=== PATIENT | female | born 1965 | race Caucasian/White ===

== ENCOUNTER → 2017-08-17 | Outpatient (CLI) | payer OTHER | LOC: BMCIMAGING 07:55 | PROVIDERS: ATTEND Physician Assistant | DX: R93.8 Abnormal findings on diagnostic imaging of other specified body structures (principal); R10.31 Right lower quadrant pain ==

== ENCOUNTER 2017-11-17 06:33 | Day surgery (SDC) | payer OTHER ==
[2017-11-17] MEDS ORDERED: LIDOCAINE 1% 2 ML INJ ID PRN (06:45)
[2017-11-17] MEDS ORDERED: LR 1,000 ML IV ONE (06:45)
[2017-11-17 07:04] VITALS: PULSE 64
--- NOTE | 2017-11-17 07:09 | PDANEPAE ---
ANE History of Present Illness 52 year old female presents for hysteroscopy due to uterine polyp. ANE Past Medical History - Cardiovascular History Hx Hypertension: No Hx Arrhythmias: No Hx Chest Pain: No Hx Coronary Artery / Peripheral Vascular Disease: No Hx CHF / Valvular Disease: No Hx Palpitations: No - Pulmonary History Hx COPD: No Hx Asthma/Reactive Airway Disease: No Hx Recent Upper Respiratory Infection: No Hx Oxygen in Use at Home: No Hx Sleep Apnea: No Sleep Apnea Screening Result - Last Documented: Negative Pulmonary History Comment: ASTHMA WHEN YOUNGER - Neurologic History Hx Cerebrovascular Accident: No Hx Seizures: No Hx Dementia: No - Endocrine History Hx Diabetes: No Hypothyroid: No Hyperthyroid: No Obesity: no - Renal History Hx Renal Disorders: No - Liver History Hx Hepatic Disorders: No - Neurological & Psychiatric Hx Hx Neurological and Psychiatric Disorders: No - Cancer History Hx Cancer: No Cancer History Comment: BREAST DYSPLASIA - Congenital Disorder History Hx Congenital Disorders: No - GI History Hx Gastrointestinal Disorders: Yes Gastrointestinal History Comment: PRILOSEC FOR ACID - Other Health History Other Health History: ALLERGIC DERMATITIS - Chronic Pain History Chronic Pain: Yes (ARTHRITIS -BACK PAIN CERVICAL OR LUMBAR) - Surgical History Prior Surgeries: RECTAL SURGERY FISSURE. LUMPECTOMY L ANE Review of Systems Review of systems is: negative Review of Systems: - Exercise capacity Exercise capacity: >=4 METS METS (RN): 4 METS ANE Patient History - Allergies Allergies/Adverse Reactions: amoxicillin [From Augmentin] Allergy (Intermediate, Verified 10/28/17 12:22) TURNED RED LIKE SUNBURN clavulanic acid [From Augmentin] Allergy (Intermediate, Verified 10/28/17 12:22) TURNED RED LIKE SUNBURN diclofenac potassium [From Cataflam] Allergy (Verified 02/19/12 16:10) - Home Medications Home medications: home medication list seen and reviewed Home Medications: Kenia Allergy 10/28/17 [Last Taken 11/16/17] Ibuprofen 10/28/17 [Last Taken 11/08/17] Naproxen 10/28/17 [Last Taken 11/08/17] - NPO status NPO Status: no food or drink >8 hours NPO Since - Liquids (Date): 11/16/17 NPO Since - Liquids (Time): 21:30 NPO Since - Solids (Date): 11/16/17 NPO Since - Solids (Time): 19:30 - Anes Hx Anes Hx: post operative nausea (Per patient, post-operative nausea is related to "opioid" pain medications, but has tolerated general anesthesia well in the past.) - Smoking Hx Smoking Status: Never smoked Marijuana use: No - Alcohol Use Alcohol Use: Occasionally - Family Anes Hx Family Anes Hx: neg - N/A Family Hx Anesthesia Complications: NEG ANE Labs/Vital Signs - Vital Signs Vital Signs: reviewed preoperatively; see RN documention for details Blood Pressure: 100/66 Heart Rate: 64 Respiratory Rate: 16 O2 Sat (%): 93 Height: 170.18 cm Weight: 63.503 kg ANE Physical Exam - Airway Neck exam: FROM Mallampati Score: Class 2 Mouth exam: normal dental/mouth exam Mouth image: 1 - Caps/Crowns - Pulmonary Pulmonary: no respiratory distress - Cardiovascular Cardiovascular: regular rate and rhythym - ASA Status ASA Status: II ANE Anesthesia Plan Anesthesia Plan: GA w LMA, GA with mask Total IV Anesthesia: Yes
[2017-11-17] MEDS ORDERED: PROPOFOL/EMULSION 500 MG/50 ML BOTTLE IV ONE (07:58)
[2017-11-17] MEDS ORDERED: fentaNYL 100 MCG/2 ML INJ ONE ×2 (08:03→08:53)
[2017-11-17] MEDS ORDERED: ONDANSETRON 4 MG/2 ML VIAL ONE ×2 (08:04→08:57)
[2017-11-17] MEDS ORDERED: DEXAMETHASONE 4 MG/ML VIAL ONE (08:04)
[2017-11-17] MEDS ORDERED: HYDROCODONE/APAP 5/325 TAB PO PRN (08:19)
[2017-11-17] MEDS ORDERED: NALOXONE HCL 0.4 MG/ML INJ IVP PRN (08:19)
[2017-11-17] MEDS ORDERED: ONDANSETRON 4 MG/2 ML VIAL IVP PRN (08:19)
[2017-11-17] MEDS ORDERED: fentaNYL 100 MCG/2 ML INJ IVP PRN (08:19)
[2017-11-17] MEDS ORDERED: LR 500 ML IV PRN (08:19)
--- NOTE | 2017-11-17 09:27 | POSTOPPROG ---
Post Op Note Date of Operation: 11/17/17 Surgeon: Cleopatra Cast Anesthesiologist: Terry Casillas Anesthesia: LMA Pre-op Diagnosis: PMB polyps Post-op Diagnosis: same Indication: PMB Procedure: H/S polypectomy Findings: small polyps Inf/Abcess present in the surg proc area at time of surgery?: No EBL: Minimal
[2017-11-17 09:33] VITALS: TEMP 97.2
[2017-11-17 09:38] VITALS: O2SAT 98
[2017-11-17] MEDS ORDERED: IBUPROFEN 200 MG TAB PO ONE (09:45)
[2017-11-17 10:23] VITALS: BP 111/71; RESP 15
--- NOTE | 2017-11-17 15:10 | POSTANESTH ---
Post Anesthetic Evaluation Cardiovascular Status: Normal, Stable, Similar to Pre-Op Cond Respiratory Status: Normal, Stable, Similar to Pre-op Cond. Level of Consciousness/Mental Status: Can Participate in Eval, Alert and Oriented Pain Control: Adequate, Prn Tx Ordered Nausea/Vomiting Control: Adequate, Prn Tx Ordered Complications Possibly Related to Anesthesia: None Noted
--- NOTE | 2017-11-20 00:47 | GOP ---
[f rep st] OPERATIVE REPORT DATE OF OPERATION: 11/17/2017 SURGEON: Cleopatra Cast MD ANESTHESIA: General with LMA. ANESTHESIOLOGIST: Edil Casillas MD PREOPERATIVE DIAGNOSIS: 1. Postmenopausal bleeding. 2. Endometrial polyps. POSTOPERATIVE DIAGNOSIS: 1. Postmenopausal bleeding. 2. Endometrial polyps. PROCEDURE PERFORMED: Hysteroscopic polypectomy. FINDINGS: Very slight polypoid looking fragments in the endometrium. Normal tubal ostia and normal uterus and cervix. INDICATIONS: Patient is a 52-year-old who has been menopausal, has been on tamoxifen for 5 years and finished in 02/2017. She has had intermittent episodes of bleeding and biopsy in 03/2016 showed dis rupted polyp. She has had no significant bleeding since then until 07/2017 when she had significant right-sided pain and nausea and bleeding. An ultrasound showed an 11 mm stripe. Because of her new onset of bleeding and history of disrupted polyp, we felt that hysteroscopic resection of polyps woul d be beneficial for her bleeding and pain. DESCRIPTION OF PROCEDURE: With informed consent signed, patient was taken to the operating room and placed under general anesthesia. Placed in low dorsal lithotomy position. Prepped and draped in the usual sterile fashion. Tenaculum placed on the anterior lip of the cervix. Cervix dilated to 9.5 m m and hysteroscope placed using normal saline as a filling medium. [employer] Truclear rotary blade placed into the hysteroscope and resection of the endometrium done until all tissue was removed . Hemostasis was noted. The hysteroscope removed and again hemostasis noted. Patient placed in sup ine position, awakened in the operating room, and taken to the recovery room in stable condition prosper ng tolerated procedure well. Net fluid deficit was 60 cc. COMPLICATIONS: None. /[id number]/MODL
== END 2017-11-17 10:22 | disposition home or self-care (01) ==
LOC: FSGY 06:33
PROVIDERS: ATTEND Obstetrics & Gynecology Gynecology
PROC: 0UDB8ZZ Extraction of Endometrium, Via Natural or Artificial Opening Endoscopic (ICD-10-PCS; principal; 2017-11-17 08:00)
DX: N95.0 Postmenopausal bleeding (principal); N84.0 Polyp of corpus uteri
CPT/HCPCS: 58558; C1782; J1100; J2405; J2704; J3010

== ENCOUNTER 2017-11-25 17:44 | Observation (INO) | payer OTHER ==
--- NOTE | 2017-11-25 18:58 | EDPHY ---
HPI/HX/ROS/PE/MDM Narrative: CHIEF COMPLAINT: Right-sided rib pain. HISTORY OF PRESENT ILLNESS: This patient is a 52 year old female complaining of right-sided rib pain. This began shortly after lunch today, around 1pm. She reports a right-sided sharp stabbing pain between her ribs anteriorly and laterally. This does not radiate to her back. Pain is slightly increased with deep inspiration. She went home and her pain worsened, so the visited urgent and was referred to the emergency department. She denies nausea or vomiting, and did not eat any unusual foods. She has had similar symptoms in the past, but never so severe or lasting as long. She is s/p hysteroscopic polypectomy 11/17/17 and had a routine recovery; she felt well prior today. She endorses history of possible cholelithiasis in graduate school, but has had no followup since. She has had URI symptoms since yesterday, and has taken two doses of DayQuil for symptom relief. No fever or cough. No chills, chest pain, shortness of breath, palpitations, vomiting, diarrhea, urinary complaints, headache, lightheadedness. REVIEW OF SYSTEMS: Aside from elements discussed in the HPI, a comprehensive 10-point review of systems was reviewed and is negative. PAST MEDICAL HISTORY: 1. Endometrial polyps 2. Possible cholelithiasis SOCIAL HISTORY: Lives in [place]. . Nonsmoker. VITAL SIGNS: Reviewed by me GENERAL: Well-developed, well-nourished, resting comfortably in no respiratory distress. HEENT: Atraumatic. Eyes: No icterus, no injection. Mouth: moist mucous membranes. No erythema or lesions. Neck: supple with no adenopathy. LUNGS: Clear to auscultation bilaterally, no wheezes, rhonchi or rales. CARDIAC: Regular rate and rhythm, no rubs, murmurs or gallops. ABDOMEN: RLQ tenderness. RUQ right lateral abdominal pain, slight tenderness but pain does not worsen with palpation. Soft, nondistended, bowel sounds normal. BACK: No CVA tenderness. EXTREMITIES: No trauma. No edema. Range of motion is normal throughout. NEURO: Alert and oriented, grossly nonfocal. SKIN: Warm and dry, no rash. PSYCHIATRIC: Normal mentation, no agitation. Portions of this note were transcribed by a medical staff physician. I personally performed a history, physical exam, medical decision making, and confirmed accuracy of information the transcribed note. ED Course: 52 y/o female s/p hysteroscopic polypectomy 11/17/17 presents with sudden onset right rib/upper abdominal pain. Exam reveals RLQ tenderness and RUQ right lateral abdominal pain with slight tenderness, but this pain does not worsen with palpation. Plan for labs including CBC, chemistries, liver, lipase, UA. Plan for bedside US gallbladder. 19:17 US shows normal gallbladder, no free fluid. Plan for CT for further evaluation. Reassessed patient. Discussed imaging results. She has decreased pain in her RLQ currently. 20:[address] Brown, radiologist. CT shows hyperemic and thickened gallbladder wall, with pericholecystic fluid, may reflect cholecystitis. No cholelithiasis. Patient's uterus is tipped towards the right. 21:[address] Angulo, general surgeon. He accepts admission for RUQ pain, cholecystitis. 21:38 Dr. Angulo at bedside. MDM: After obtaining the patients history and performing an examination, differential diagnosis considered included but was not limited to appendicitis, cholecystitis, gastritis, pancreatitis, kidney stones, urinary tract infections and other causes. - Data Points Imaging Results: Imaging Impressions Abdomen CT 11/25/17 19:22 Impression: 1. Hyperemic and thickened gallbladder wall, with pericholecystic fluid, may reflect cholecystitis. 2. A normal appendix is visualized. 3. The uterus is tipped towards the right and has heterogeneous attenuation that may be related to postoperative change from recent D&C. Results called and discussed with Katia Cazares M.D., on November 25, 2017 at 2053. Imaging: Discussed imaging studies w/ recruiting team lead Radiologist Laboratory Results: Laboratory Results 11/25/17 18:25 11/25/17 18:25 11/25/17 11/25/17 11/25/17 19:45 18:25 18:25 WBC 6.77 10^3/uL 10^3/uL (3.80-9.50) RBC 4.78 10^6/uL 10^6/uL (4.18-5.33) Hgb 15.8 g/dL g/dL (12.6-16.3) Hct 44.6 % % (38.0-47.0) MCV 93.3 fL fL (81.5-99.8) MCH 33.1 pg pg (27.9-34.1) MCHC 35.4 g/dL g/dL (32.4-36.7) RDW 12.5 % % (11.5-15.2) Plt Count 235 10^3/uL 10^3/uL (150-400) MPV 10.0 fL fL (8.7-11.7) Neut % (Auto) 56.5 % % (39.3-74.2) Lymph % (Auto) 31.8 % % (15.0-45.0) [place] % (Auto) 7.1 % % (4.5-13.0) Eos % (Auto) 3.7 % % (0.6-7.6) Baso % (Auto) 0.6 % % (0.3-1.7) Nucleat RBC Rel Count 0.0 % % (0.0-0.2) Absolute Neuts (auto) 3.83 10^3/uL 10^3/uL (1.70-6.50) Absolute Lymphs (auto) 2.15 10^3/uL 10^3/uL (1.00-3.00) Absolute Monos (auto) 0.48 10^3/uL 10^3/uL (0.30-0.80) Absolute Eos (auto) 0.25 10^3/uL 10^3/uL (0.03-0.40) Absolute Basos (auto) 0.04 10^3/uL 10^3/uL (0.02-0.10) Absolute Nucleated RBC 0.00 10^3/uL 10^3/uL (0-0.01) Immature Gran % 0.3 % % (0.0-1.1) Immature Gran # 0.02 10^3/uL 10^3/uL (0.00-0.10) Sodium 144 mEq/L mEq/L (135-145) Potassium 3.7 mEq/L mEq/L (3.5-5.2) Chloride 101 mEq/L mEq/L (97-110) Carbon Dioxide 26 mEq/l mEq/l (22-31) Anion Gap 17 mEq/L H mEq/L (8-16) BUN 15 mg/dL mg/dL (7-23) Creatinine 0.8 mg/dL mg/dL (0.6-1.0) Estimated GFR > 60 Glucose 106 mg/dL H mg/dL (70-100) Calcium 11.0 mg/dL H mg/dL (8.5-10.4) Phosphorus 4.3 mg/dL mg/dL (2.5-4.5) Total Bilirubin 0.7 mg/dL mg/dL (0.1-1.4) Conjugated Bilirubin 0.3 mg/dL mg/dL (0.0-0.5) Unconjugated Bilirubin 0.4 mg/dL mg/dL (0.0-1.1) AST 40 IU/L IU/L (14-46) ALT 51 IU/L IU/L (9-52) Alkaline Phosphatase 69 IU/L IU/L (38-126) Total Protein 8.3 g/dL H g/dL (6.3-8.2) Albumin 5.1 g/dL H g/dL (3.5-5.0) Lipase 186 IU/L IU/L (23-300) Urine Color PALE YELLOW Urine Appearance CLEAR Urine pH 8.0 H (5.0-7.5) Ur Specific [place] 1.009 (1.002-1.030) Urine Protein NEGATIVE (NEGATIVE) Urine Ketones NEGATIVE (NEGATIVE) Urine Blood 1+ H (NEGATIVE) Urine Nitrate NEGATIVE (NEGATIVE) Urine Bilirubin NEGATIVE (NEGATIVE) Urine Urobilinogen NEGATIVE EU EU (0.2-1.0) Ur Leukocyte Esterase NEGATIVE (NEGATIVE) Urine RBC 3-5 /hpf H /hpf (0-3) Urine WBC 1-3 /hpf /hpf (0-3) Ur Epithelial Cells NONE SEEN /lpf /lpf (NONE-1+) Urine Glucose NEGATIVE (NEGATIVE) Medications Given: Discontinued Medications Ertapenem (Invanz) 1 gm IVP EDNOW ONE PRN Reason: Protocol Stop: 11/25/17 21:26 Last Admin: 11/25/17 21:34 Dose: 1 gm Sodium Chloride (Ns) 1,000 mls @ 0 mls/hr IV ONCE ONE; Wide Open PRN Reason: Protocol Stop: 11/25/17 19:01 Last Admin: 11/25/17 19:42 Dose: 1,000 mls Ketorolac Tromethamine (Toradol) 30 mg IVP EDNOW ONE Stop: 11/25/17 19:23 Last Admin: 11/25/17 19:42 Dose: 30 mg General Time Seen by Provider: 11/25/17 18:40 Initial Vital Signs: Initial Vital Signs Temperature (C) 36.7 C 11/25/17 18:04 Heart Rate 88 11/25/17 18:04 Respiratory Rate 15 11/25/17 18:04 Blood Pressure 106/76 11/25/17 18:04 O2 Sat (%) 95 11/25/17 18:04 O2 Delivery Mode Room Air Allergies/Adverse Reactions: amoxicillin [From Augmentin] Allergy (Intermediate, Verified 11/25/17 18:03) TURNED RED LIKE SUNBURN clavulanic acid [From Augmentin] Allergy (Intermediate, Verified 11/25/17 18:03) TURNED RED LIKE SUNBURN diclofenac potassium [From Cataflam] Allergy (Verified 11/25/17 22:23) Home Medications: Medication Instructions Recorded Fexofenadine HCl [Kenia Allergy] 60 mg PO DAILY 10/28/17 Ibuprofen [Motrin (*)] 200 mg PO Q6H PRN 10/28/17 Naproxen Sodium [Aleve 220 MG (*)] 220 mg PO BID PRN 10/28/17 Calcium Carbonate [Tums 500MG (*)] 500 mg PO Q4H PRN 11/25/17 Departure - Departure Disposition: [facility] Inpatient Acute Clinical Impression: Acute cholecystitis Abdominal pain Qualifiers: Abdominal location: right upper quadrant Qualified Code(s): R10.11 - Right upper quadrant pain Condition: Good Report Scribed for: Katia Cazares Report Scribed by: Consuelo Boone Date of Report: 11/25/17 Time of Report: 21:16
[2017-11-25] MEDS ORDERED: NS 1,000 ML IV ONE (19:00)
[2017-11-25 19:06] LABS: PLATELET COUNT 235 10^3/uL (150-400)
[2017-11-25] MEDS ORDERED: KETOROLAC 30 MG/1 ML SDV IVP ONE (19:22)
[2017-11-25] MEDS ORDERED: IOPAMIDOL (ISOVUE-300) 100 ML BTL ONE (19:51)
[2017-11-25] MEDS ORDERED: ERTAPENEM 1 GM VIAL IVP ONE (21:25)
--- NOTE | 2017-11-25 22:08 | PDGENHP ---
History & Physical Chief Complaint: RUQ PAIN History of Present Illness: 52 FEMALEWITH SUDDEN RUQ PAIN AND NAUSEA/ CT SHOWS THICK INFLAMED GB/ LFTs OK/ AFEBRILE/ MULTIPLE PRIOR SIMILAR BUT LESS SEVERE EPISODES/ ADMIT FOR LAP CARLOS Pertinent Past, Social, Family History: NASAL ALLERGIES/ NO SURGERY/ NO MAJOR MED PROBLEMS. FAM HX NON CONTRIBUTORY. ALL: AMOXICILLIN, DICLOFENAC. MEDS FLONASE. ROS- 10 PT REVIEW Relevant Physical Exam: 52 FEMALE IN NO ACUTE DISTRESS, AFEBRILE. HEENT NONITERIC, PERRLA, NO ADENOPATHY. CHEST CLEAR. COR RR. ABD MILD RUQ TENDERNESS. EXTREM FULL PULSES. NEURO PHYSIOLOGIC. SKIN OK Cardiorespiratory Assessment: IMPR ACUTE CHOLECYSITIS. PLAN LAP CHOLY, RISKS AND OPTIONS FULLY DISCUSSED
[2017-11-25] MEDS ORDERED: HYDROmorphONE/DILAUDID 2 MG/ML INJ IVP PRN (22:17)
[2017-11-25] MEDS ORDERED: D5W 1/2 NS W/ 20 KCl/L 1,000 ML IV SCH (22:30)
[2017-11-25] MEDS: ACETAMINOPHEN PO PRN (23:17)
[2017-11-25] MEDS: [UNRECOGNIZED DRUG - OTHER] PO PRN (23:17)
[2017-11-25] MEDS: DEXTROMETHORPHAN PO PRN (23:17)
[2017-11-25] MEDS: PHENYLEPHRINE PO PRN (23:17)
[2017-11-25] MEDS: OXYMETAZOLINE 30 ML NASAL SPRAY EACHNARE PRN (23:19)
[2017-11-26] MEDS: KETOROLAC 15 MG/1 ML SDV IVP SCH ×4 (02:22→17:44)
[2017-11-26] MEDS: [UNRECOGNIZED DRUG - OTHER] PO PRN (04:23)
[2017-11-26] MEDS: ACETAMINOPHEN PO PRN (04:23)
[2017-11-26] MEDS: DEXTROMETHORPHAN PO PRN (04:23)
[2017-11-26] MEDS: PHENYLEPHRINE PO PRN (04:23)
[2017-11-26] MEDS: ONDANSETRON 4 MG/2 ML VIAL IVP PRN ×2 (06:07→09:29)
[2017-11-26] MEDS ORDERED: LR 1,000 ML IV ONE (06:42)
[2017-11-26] MEDS ORDERED: MIDAZOLAM 2 MG/2 ML VIAL IVP ONE (06:55)
--- NOTE | 2017-11-26 06:55 | PDANEPAE ---
ANE History of Present Illness abdominal pain here for lap patrice ALMA Past Medical History - Cardiovascular History Hx Hypertension: No Hx Arrhythmias: No Hx Chest Pain: No Hx Coronary Artery / Peripheral Vascular Disease: No Hx CHF / Valvular Disease: No Hx Palpitations: No - Pulmonary History Hx COPD: No Hx Asthma/Reactive Airway Disease: No Hx Recent Upper Respiratory Infection: No Hx Oxygen in Use at Home: No Hx Sleep Apnea: No Sleep Apnea Screening Result - Last Documented: Negative Pulmonary History Comment: ASTHMA WHEN YOUNGER - Neurologic History Hx Cerebrovascular Accident: No Hx Seizures: No Hx Dementia: No - Endocrine History Hx Diabetes: No - Renal History Hx Renal Disorders: No - Liver History Hx Hepatic Disorders: No - Neurological & Psychiatric Hx Hx Neurological and Psychiatric Disorders: Yes - Cancer History Hx Cancer: No Cancer History Comment: BREAST DYSPLASIA - Congenital Disorder History Hx Congenital Disorders: No - GI History Hx Gastrointestinal Disorders: Yes Gastrointestinal History Comment: PRILOSEC FOR ACID - Other Health History Other Health History: ALLERGIC DERMATITIS - Chronic Pain History Chronic Pain: Yes (ARTHRITIS -BACK PAIN CERVICAL OR LUMBAR) - Surgical History Prior Surgeries: RECTAL SURGERY FISSURE. LUMPECTOMY L ANE Review of Systems Review of Systems: - Exercise capacity Exercise capacity: >=4 METS ANE Patient History - Allergies Allergies/Adverse Reactions: amoxicillin [From Augmentin] Allergy (Intermediate, Verified 11/25/17 18:03) TURNED RED LIKE SUNBURN clavulanic acid [From Augmentin] Allergy (Intermediate, Verified 11/25/17 18:03) TURNED RED LIKE SUNBURN diclofenac potassium [From Cataflam] Allergy (Verified 11/25/17 22:23) - Home Medications Home medications: home medication list seen and reviewed Home Medications: Fexofenadine HCl [Kenia Allergy] 60 mg PO DAILY 10/28/17 [Last Taken 11/25/17] Ibuprofen [Motrin (*)] 200 mg PO Q6H PRN 10/28/17 [Last Taken 11/25/17 14:00] Naproxen Sodium [Aleve 220 MG (*)] 220 mg PO BID PRN 10/28/17 [Last Taken ] Calcium Carbonate [Tums 500MG (*)] 500 mg PO Q4H PRN 11/25/17 [Last Taken ] - NPO status NPO Since - Liquids (Date): 11/25/17 NPO Since - Liquids (Time): 22:00 NPO Since - Solids (Date): 11/25/17 NPO Since - Solids (Time): 22:00 - Anes Hx Anes Hx: post operative nausea - Smoking Hx Smoking Status: Former smoker - Alcohol Use Alcohol Use: Occasionally - Family Anes Hx Family Anes Hx: none Family Hx Anesthesia Complications: NEG ANE Labs/Vital Signs - Labs Result Diagrams: 11/25/17 18:25 11/25/17 18:25 - Vital Signs Blood Pressure: 98/58 Heart Rate: 58 Respiratory Rate: 15 O2 Sat (%): 94 Height: 170.18 cm Weight: 68.039 kg ANE Physical Exam - Airway Neck exam: FROM Mallampati Score: Class 2 Mouth exam: normal dental/mouth exam - Pulmonary Pulmonary: no respiratory distress, clear to auscultation - Cardiovascular Cardiovascular: regular rate and rhythym, no murmur, rub, or gallop - ASA Status ASA Status: II ANE Anesthesia Plan Anesthesia Plan: general endotracheal anesthesia
[2017-11-26] MEDS ORDERED: SCOPOLAMINE HYDROBROMIDE 1 MG/3 DAYS PATCH TD SCH (07:00)
[2017-11-26] MEDS ORDERED: ceFAZolin 1 GM/5 ML SYR ONE (07:09)
[2017-11-26] MEDS ORDERED: BUPIVACAINE 0.5% 30 ML SDV ONE (07:09)
[2017-11-26] MEDS ORDERED: HEPARIN 1000 UNIT/1 ML MDV ONE (07:09)
[2017-11-26] MEDS ORDERED: fentaNYL 100 MCG/2 ML INJ ONE (07:20)
[2017-11-26] MEDS ORDERED: LIDOCAINE 2% 100 MG/5 ML SYR ONE (07:21)
[2017-11-26] MEDS ORDERED: PROPOFOL 200 MG/20 ML VIAL ONE (07:21)
[2017-11-26] MEDS ORDERED: ROCURONIUM 50 MG/5 ML VIAL ONE (07:21)
[2017-11-26] MEDS ORDERED: NALOXONE HCL 0.4 MG/ML INJ IVP PRN (08:42)
[2017-11-26] MEDS ORDERED: OXYCODONE/APAP 5/325 TAB PO PRN (08:42)
[2017-11-26] MEDS ORDERED: ACETAMINOPHEN 500 MG TAB PO PRN (08:42)
[2017-11-26] MEDS ORDERED: HYDROCODONE/APAP 5/325 TAB PO PRN (08:42)
[2017-11-26] MEDS ORDERED: fentaNYL 100 MCG/2 ML INJ IVP PRN (08:42)
[2017-11-26] MEDS ORDERED: ONDANSETRON 4 MG/2 ML VIAL IVP PRN (08:42)
--- NOTE | 2017-11-26 08:46 | POSTOPPROG ---
Post Op Note Date of Operation: 11/26/17 Surgeon: Tony Angulo Anesthesiologist: dada Anesthesia: GET(General Endotracheal) Pre-op Diagnosis: acute cholecystitis Post-op Diagnosis: same Indication: pain Procedure: lap choly Findings: acute edematous cholecystitis with no stones Inf/Abcess present in the surg proc area at time of surgery?: Yes Depth: Organ Space EBL: Minimal Complications: 0 Specimen(s): gallbladder
[2017-11-26] MEDS ORDERED: SCOPOLAMINE HYDROBROMIDE 1 MG/3 DAYS PATCH TD ONE (08:50)
[2017-11-26] MEDS ORDERED: D5W 1/2 NS W/ 20 KCl/L 1,000 ML IV SCH (09:00)
--- NOTE | 2017-11-26 10:46 | GOP ---
[f rep st] OPERATIVE REPORT DATE OF OPERATION: SURGEON: Tony Angulo MD EVENT PLANNER: There was no accountant assistant. ANESTHESIOLOGIST: Galileo Taylor MD. PREOPERATIVE DIAGNOSIS: Acute acalculous cholecystitis. POSTOPERATIVE DIAGNOSIS: Acute acalculous cholecystitis. PROCEDURE PERFORMED: Laparoscopic cholecystectomy. FINDINGS: Patient was found to have an inflamed gallbladder with edema around the gallbladder and ma rked adhesions to the gallbladder but no stones. Ducts were small. DESCRIPTION OF PROCEDURE: Patient was taken to the operating room where she received a satisfactory general endotracheal anesthesia by Dr. Taylor. She was placed in the supine position, prepped and tj ped in the usual sterile fashion. An infraumbilical incision was made, a Veress needle inserted and pneumoperitoneum was established. Trocar was introduced. Laparoscope introduced. Good visualizatio n was obtained. Three other trocars were placed in the upper abdomen under direct vision. The gallb ladder was visualized. It was covered with adhesions. It was elevated up and the adhesions were take n down with electrocautery exposing the entire gallbladder which was quite edematous but still soft. Cystic triangle was carefully dissected free. A good clear view was established and cystic duct and cystic artery were multiply hemoclipped and divided with care to avoid injury to the common bile ihsan t. The peritoneum of the gallbladder was incised. The gallbladder was dissected free from the bed a nd hepatic fossa, and extracted through the upper midline port site. Hemostasis was assured. The wo und was irrigated. Trocars were removed under direct vision. Trocar sites were closed with 0 Vicryl for the fascia, 4-0 Monocryl subcuticular stitch for the skin. All layers were infiltrated with 0.5% Marcaine. /[id number]/MODL
[2017-11-26] MEDS: ERTAPENEM 1 GM VIAL IV SCH (11:15)
--- NOTE | 2017-11-26 16:28 | ASMTLACE ---
VINOD Length of stay for Answers: 2 days current admission Acuity / Level of Answers: No Care: Did the patient have an inpatient admission? # of Emergency department Answers: 0 visits in the last 6 months Score: 2 Date Signed: 11/26/2017 04:27 PM Electronically Signed By:Eulalia Walker RN
[2017-11-27] MEDS: KETOROLAC 15 MG/1 ML SDV IVP SCH ×2 (01:18→05:23)
[2017-11-27] MEDS: DEXTROMETHORPHAN PO PRN (01:22)
[2017-11-27] MEDS: OXYMETAZOLINE 30 ML NASAL SPRAY EACHNARE PRN (01:22)
[2017-11-27] MEDS: ACETAMINOPHEN PO PRN (01:22)
[2017-11-27] MEDS: [UNRECOGNIZED DRUG - OTHER] PO PRN (01:22)
[2017-11-27] MEDS: PHENYLEPHRINE PO PRN (01:22)
[2017-11-27 07:46] VITALS: PULSE 58; RESP 14; TEMP 97.8; O2SAT 94
[2017-11-27 08:05] VITALS: BP 104/68
--- NOTE | 2017-11-27 09:31 | SOAPPROG ---
SOAP Progress Note Assessment/Plan: Assessment: doing well/ eating ok/ afebrile/ nonicteric/ abd soft Plan:home 11/27/17 09:30 Objective: Vital Signs Temp Pulse Resp BP Pulse Ox 36.6 C 58 L 14 104/68 94 11/27/17 07:45 11/27/17 07:45 11/27/17 07:45 11/27/17 08:05 11/27/17 07:45 11/26/17 11/27/17 11/28/17 05:59 05:59 05:59 Intake Total 1000 1000 Balance 1000 1000 ICD10 Worksheet Patient Problems: Problems Problem Status Onset Abdominal pain Acute Acute cholecystitis Acute
[2017-11-27] MEDS: ERTAPENEM 1 GM VIAL IV SCH (09:49)
--- NOTE | 2017-11-27 10:37 | ASMTCMCOM ---
CM Note CM Note Notes: No needs identified, anticipate will dc home w/support of when medically stable. CM available for any changes. DC Plan: Independent Date Signed: 11/27/2017 10:37 AM Electronically Signed By:Lianna Jackson RN
--- NOTE | 2017-11-27 17:36 | ASDISCHSUM ---
Discharge Information Plan Status:Home with No Needs Medically Cleared to Leave: Discharge Date:11/27/2017 10:44 AM CM D/C Disposition:Home, Routine, Self-Care ADT D/C Disposition:Home, Routine, Self-Care Projected Discharge Date:11/27/2017 10:44 AM Transportation at D/C: Discharge Delay Reason: Follow-Up Date:11/27/2017 10:44 AM Discharge Slot: Final Diagnosis: Placement Information Patient Contact Information Contact Name:RADHA Relationship: [place] [place] Alternate Phone: [facility] Code:[place] [address] Email: Financial Information Financial Class:HMO and PPO Plans Primary Plan Desc:ESTHELA DILLON PPO [employer] Primary Plan Number:[id number] Secondary Plan Desc: Secondary Plan Number: Assessment Information LACE LACE Length of stay for Answers: 2 days current admission Acuity / Level of Answers: No Care: Did the patient have an inpatient admission? # of Emergency department Answers: 0 visits in the last 6 months Score: 2 Date Signed: 11/26/2017 04:27 PM Electronically Signed By:Eulalia Walker RN [facility] CM Progress Note CM Note CM Note Notes: No needs identified, anticipate will dc home w/support of when medically stable. CM available for any changes. DC Plan: Independent Date Signed: 11/27/2017 10:37 AM Electronically Signed By:Lianna Jackson RN Intervention Information
== END 2017-11-27 10:44 | disposition home or self-care (01) ==
LOC: F3E 21:57
PROVIDERS: ADMIT Surgery; ATTEND Surgery
PROC: 0FT44ZZ Resection of Gallbladder, Percutaneous Endoscopic Approach (ICD-10-PCS; principal; 2017-11-25)
DX: K81.1 Chronic cholecystitis (principal)
CPT/HCPCS: 47562; 74177; G0378; J1170; J1335; J1885; J2001; J2250; J2405; J2704; J3010; Q9967

== ENCOUNTER → 2017-12-15 | Outpatient (CLI) | payer OTHER | LOC: FIMAGING 14:24 | PROVIDERS: ATTEND Internal Medicine Hematology & Oncology | DX: Z12.31 Encounter for screening mammogram for malignant neoplasm of breast (principal) ==

== ENCOUNTER → 2018-01-15 | Outpatient (CLI) | payer OTHER ==
[~2018-01-15] MED LIST: IOPAMIDOL (ISOVUE 370) 100 ML BTL IV ONE
== END ==
LOC: FIMAGING 15:12
PROVIDERS: ATTEND Internal Medicine
DX: R42 Dizziness and giddiness (principal)
CPT/HCPCS: Q9967

== ENCOUNTER 2018-08-05 17:44 | Emergency (ER) | payer OTHER ==
--- NOTE | 2018-08-05 18:17 | EDPHY ---
H & P Stated Complaint: RLQ pain c nausea since yesterday Time Seen by Provider: 08/05/18 18:16 HPI/ROS: HPI: This is a 53-year-old female who presents with Chief Complaint: RLQ pain c nausea since yesterday Location: Right lower quadrant Quality: Pain Duration: 24 hr Signs and Symptoms: no fever, + nausea, no vomiting, no hematemesis, no blood in stool, no abdominal bloating, no diarrhea, no back pain, no urinary symptoms , no vaginal bleeding/discharge, no indigestion, no chest pain, no shortness of breath Timing: Acute, sudden onset, constant Severity: 8 out of 10 Context: Patient reports that yesterday evening around 7:00 p.m. She had sudden onset of nonradiating right lower quadrant pain that has remained constant and is moderate to severe in intensity. She describes as cramping at times. She reports that she started to developed nausea soon after the pain started. She drank water this morning around 8:00 a.m. But has not eaten or drank anything since that time. She has a history of cholecystectomy. She is postmenopausal. Nothing makes the pain better or worse. Denies urinary symptoms or blood in her urine. No history of kidney stones. No bowel movement in several days. Modifying Factors: None Comment: ROS: A comprehensive 10 system review of systems is otherwise negative aside from elements mentioned in the history of present illness. MEDICAL/SURGICAL/SOCIAL HISTORY: Medical/Surgical history: LOW BACK PAIN, "PRE CANCER LT BREAST, cholecystectomy , endometrial polyps Social history: Former smoker. . Family history noncontributory. CONSTITUTIONAL: Nontoxic-appearing polite, middle-aged female, awake and alert , no obvious distress HEENT: Atraumatic and normocephalic, PERRL, EOMI. Nares patent; no rhinorrhea; no nasal mucosal edema. Tympanic membranes clear. Oropharynx clear, no exudate and moist pink mucosa. Airway patent. No lymphadenopathy. No meningismus. Cardiovascular: Normal S1/S2, regular rate, regular rhythm, without murmur rub or gallop. PULMONARY/CHEST: Symmetrical and nontender. Clear to auscultation bilaterally. Good air movement. No accessory muscle usage. ABDOMEN: Soft, nondistended, moderate right lower quadrant tenderness; + rebound, + guarding, no peritoneal signs, no masses or organomegaly. No CVAT. EXTREMITIES: 2/2 pulses, strength 5/5, no deformities, no clubbing, no cyanosis or edema. NEUROLOGICAL: no focal neuro deficits. GCS 15. SKIN: Warm and dry, no erythema. no rash. Good capillary refill. Source: Patient Exam Limitations: No limitations - Personal History Current Tetanus/Diphtheria Vaccine: Yes - Medical/Surgical History Hx Asthma: No Hx Chronic Respiratory Disease: No Hx Diabetes: No Hx Cardiac Disease: No Hx Renal Disease: No Hx Cirrhosis: No Hx Alcoholism: No Hx HIV/AIDS: No Hx Splenectomy or Spleen Trauma: No Other PMH: LOW BACK PAIN, "PRE CANCER LT BREAST, cholecystectomy, endometrial polyps - Social History Smoking Status: Former smoker Constitutional: Initial Vital Signs Temperature (C) 36.9 C 08/05/18 18:01 Heart Rate 72 08/05/18 18:01 Respiratory Rate 18 08/05/18 18:01 Blood Pressure 111/65 08/05/18 18:01 O2 Sat (%) 94 08/05/18 18:01 O2 Delivery Mode Room Air O2 (L/minute) 2 Allergies/Adverse Reactions: amoxicillin [From Augmentin] Allergy (Intermediate, Verified 08/05/18 18:01) TURNED RED LIKE SUNBURN clavulanic acid [From Augmentin] Allergy (Intermediate, Verified 08/05/18 18:01) TURNED RED LIKE SUNBURN diclofenac potassium [From Cataflam] Allergy (Verified 08/05/18 18:01) Home Medications: Medication Instructions Recorded Fexofenadine HCl [Kenia Allergy] 60 mg PO DAILY 10/28/17 Ibuprofen [Motrin (*)] 200 mg PO Q6H PRN 10/28/17 Naproxen Sodium [Aleve 220 MG (*)] 220 mg PO BID PRN 10/28/17 Calcium Carbonate [Tums 500MG (*)] 500 mg PO Q4H PRN 11/25/17 Ondansetron Odt [Zofran Odt 4 mg 4 mg PO Q4 PRN #12 tab 08/05/18 (*)] Medical Decision Making - Diagnostics Imaging Results: Imaging Impressions Abdomen CT 08/05/18 18:18 Impression: 1. No acute findings in the abdomen or pelvis. 2. Mild biliary dilatation, likely related to prior cholecystectomy. 3. Additional findings, as above. Findings discussed with Rona Richey PA-C, on August 05, 2018 at 2044. E:[facility]-ct/amm ED Course/Re-evaluation: Vital signs reviewed and stable upon arrival. No systemic signs. Laboratory studies, IV fluids, IV medications, CT abdomen and pelvis scan to evaluate for appendicitis ordered Given 1 L normal saline, IV morphine 4 mg, IV Zofran 1909: Labs reviewed. No signs of leukocytosis/anemia/platelet dysfunction/THONG/ elevated LFTs/electrolyte imbalance/pancreatitis. 1919: Notified by RN that patient is having an adverse reaction to morphine. Assessed patient and she is on her knees face down on the bed rocking back and forth. She reports"I feel funny." IV Benadryl 50 mg and Ativan 1 mg given. 1954: Patient returned from CT complaining of bandlike discomfort with an adverse reaction to the pain medication that returned after receiving her CT scan and being transferred from the ER stretcher to the CT scan table. IV Ativan 2 mg given. 2014: Reassessed patient. Reports adequate pain relief. Calmly resting on stretcher. 2044: Called by radiologist, Dr. Mcnulty, who reports CT abdomen and pelvis scan shows no signs of appendicitis, ureterolithiasis, obstruction, pyelonephritis, ovarian cyst. + moderate stool. Urinalysis ordered and shows no signs of infection. + increased specific gravity and ketones. Patient received IV fluids in the ER. This patient was seen under the supervision of my secondary supervising physician. I evaluated care for this patient independently. Discussed this patient with Dr. Og. Differential Diagnosis: Abdominal pain including but not limited to appendicitis, cholecystitis, gastritis and urinary tract infection. - Data Points Laboratory Results: Laboratory Results 08/05/18 18:40 08/05/18 18:40 08/05/18 08/05/18 08/05/18 21:10 18:40 18:40 WBC RBC Hgb Hct MCV MCH MCHC RDW Plt Count MPV Neut % (Auto) Lymph % (Auto) [place] % (Auto) Eos % (Auto) Baso % (Auto) Nucleat RBC Rel Count Absolute Neuts (auto) Absolute Lymphs (auto) Absolute Monos (auto) Absolute Eos (auto) Absolute Basos (auto) Absolute Nucleated RBC Immature Gran % Immature Gran # Sodium 138 mEq/L mEq/L (135-145) Potassium 4.0 mEq/L mEq/L (3.3-5.0) Chloride 103 mEq/L mEq/L (97-110) Carbon Dioxide 25 mEq/l mEq/l (22-31) Anion Gap 10 mEq/L mEq/L (6-14) BUN 16 mg/dL mg/dL (7-23) Creatinine 0.7 mg/dL mg/dL (0.6-1.0) Estimated GFR > 60 Glucose 94 mg/dL mg/dL (70-100) Calcium 9.7 mg/dL mg/dL (8.5-10.4) Total Bilirubin 0.9 mg/dL mg/dL (0.1-1.4) Conjugated Bilirubin 0.2 mg/dL mg/dL (0.0-0.5) Unconjugated Bilirubin 0.7 mg/dL mg/dL (0.0-1.1) AST 35 IU/L IU/L (14-46) ALT 28 IU/L IU/L (9-52) Alkaline Phosphatase 69 IU/L IU/L (38-126) Total Protein 7.3 g/dL g/dL (6.3-8.2) Albumin 4.5 g/dL g/dL (3.5-5.0) Lipase 122 IU/L IU/L (23-300) Beta HCG, Qual NEGATIVE Urine Color YELLOW Urine Appearance CLEAR Urine pH 6.0 (5.0-7.5) Ur Specific [place] > 1.035 H (1.002-1.030) Urine Protein NEGATIVE (NEGATIVE) Urine Ketones 1+ H (NEGATIVE) Urine Blood NEGATIVE (NEGATIVE) Urine Nitrate NEGATIVE (NEGATIVE) Urine Bilirubin NEGATIVE (NEGATIVE) Urine Urobilinogen NEGATIVE EU EU (0.2-1.0) Ur Leukocyte Esterase NEGATIVE (NEGATIVE) Urine Glucose NEGATIVE (NEGATIVE) 08/05/18 18:40 WBC 4.86 10^3/uL 10^3/uL (3.80-9.50) RBC 4.85 10^6/uL 10^6/uL (4.18-5.33) Hgb 15.6 g/dL g/dL (12.6-16.3) Hct 44.1 % % (38.0-47.0) MCV 90.9 fL fL (81.5-99.8) MCH 32.2 pg pg (27.9-34.1) MCHC 35.4 g/dL g/dL (32.4-36.7) RDW 12.4 % % (11.5-15.2) Plt Count 219 10^3/uL 10^3/uL (150-400) MPV 10.0 fL fL (8.7-11.7) Neut % (Auto) 55.8 % % (39.3-74.2) Lymph % (Auto) 33.7 % % (15.0-45.0) [place] % (Auto) 7.0 % % (4.5-13.0) Eos % (Auto) 2.9 % % (0.6-7.6) Baso % (Auto) 0.4 % % (0.3-1.7) Nucleat RBC Rel Count 0.0 % % (0.0-0.2) Absolute Neuts (auto) 2.71 10^3/uL 10^3/uL (1.70-6.50) Absolute Lymphs (auto) 1.64 10^3/uL 10^3/uL (1.00-3.00) Absolute Monos (auto) 0.34 10^3/uL 10^3/uL (0.30-0.80) Absolute Eos (auto) 0.14 10^3/uL 10^3/uL (0.03-0.40) Absolute Basos (auto) 0.02 10^3/uL 10^3/uL (0.02-0.10) Absolute Nucleated RBC 0.00 10^3/uL 10^3/uL (0-0.01) Immature Gran % 0.2 % % (0.0-1.1) Immature Gran # 0.01 10^3/uL 10^3/uL (0.00-0.10) Sodium Potassium Chloride Carbon Dioxide Anion Gap BUN Creatinine Estimated GFR Glucose Calcium Total Bilirubin Conjugated Bilirubin Unconjugated Bilirubin AST ALT Alkaline Phosphatase Total Protein Albumin Lipase Beta HCG, Qual Urine Color Urine Appearance Urine pH Ur Specific [place] Urine Protein Urine Ketones Urine Blood Urine Nitrate Urine Bilirubin Urine Urobilinogen Ur Leukocyte Esterase Urine Glucose Medications Given: Discontinued Medications Diphenhydramine HCl (Benadryl Injection) 50 mg IVP EDNOW ONE Stop: 08/05/18 19:19 Last Admin: 08/05/18 19:19 Dose: 50 mg Sodium Chloride (Ns) 1,000 mls @ 0 mls/hr IV EDNOW ONE; Wide Open PRN Reason: Protocol Stop: 08/05/18 18:19 Last Admin: 08/05/18 18:42 Dose: 1,000 mls Lorazepam (Ativan Injection) 1 mg IVP EDNOW ONE Stop: 08/05/18 19:31 Last Admin: 08/05/18 19:31 Dose: 1 mg Lorazepam (Ativan Injection) 2 mg IVP EDNOW ONE Stop: 08/05/18 19:58 Last Admin: 08/05/18 20:01 Dose: 2 mg Morphine Sulfate (Morphine) 6 mg IVP EDNOW ONE Stop: 08/05/18 18:19 Last Admin: 08/05/18 18:42 Dose: 6 mg Ondansetron HCl (Zofran) 4 mg IVP EDNOW ONE Stop: 08/05/18 18:19 Last Admin: 08/05/18 18:42 Dose: 4 mg Ondansetron HCl (Zofran Odt 4 Mg Prepack#2) 1 btl TAKEHOME EDNOW ONE Stop: 08/05/18 21:55 Last Admin: 08/05/18 21:55 Dose: 1 btl Departure - Departure Disposition: Home, Routine, Self-Care Clinical Impression: Right lower quadrant abdominal pain of unknown etiology, Constipation by delayed colonic transit Condition: Good Instructions: Simethicone (By mouth), Ondansetron (By injection), Polyethylene Glycol 3350 (By mouth), Constipation (ED), Acute Abdominal Pain (ED), Gas and Bloating (ED) Additional Instructions: The CT scan today shows no signs of appendicitis, kidney stone, obstruction, kidney infection. It did show constipation. Consume a minimum of 8-10 glasses of water or electrolyte fluid replacement drinks that include Gatorade, Powerade, Pedialyte. Eat a bland diet for the next 48 hours and then slowly advance as tolerated. Take Zofran 1 tab every 4 hours as needed for nausea, vomiting. Take MiraLax daily as needed for constipation. Take simethicone/Mylicon as needed for abdominal gas pain. Return to the Emergency Room if symptoms do not resolve in the next 72 hours, you spike a fever > 102 F, or experience intractable abdominal pain/nausea/ vomiting. Referrals: Yoli Salinas MD [Primary Care Provider] - 2-3 days, if not improved Prescriptions: Ondansetron Odt [Zofran Odt 4 mg (*)] 4 mg PO Q4 PRN #12 tab PRN Reason: Nausea/Vomiting, Use 1st
[2018-08-05] MEDS ORDERED: NS 1,000 ML IV ONE (18:18)
[2018-08-05] MEDS ORDERED: ONDANSETRON 4 MG/2 ML VIAL IVP ONE (18:18)
[2018-08-05 18:59] LABS: PLATELET COUNT 219 10^3/uL (150-400)
[2018-08-05] MEDS ORDERED: IOPAMIDOL (ISOVUE-300) 100 ML BTL ONE (19:21)
[2018-08-05] MEDS ORDERED: LORazepam 2 MG/ML INJ ONE (19:25)
[2018-08-05] MEDS ORDERED: LORazepam 2 MG/ML INJ IVP ONE ×2 (19:30→19:57)
[2018-08-05] MEDS ORDERED: ONDANSETRON 4MG PREPACK#2 BTL TAKEHOME ONE ×2 (21:53→21:54)
[2018-08-05 22:05] VITALS: BP 114/71
== END 2018-08-05 22:05 | disposition home or self-care (01) ==
DX: R10.31 Right lower quadrant pain (principal); K59.00 Constipation, unspecified
CPT/HCPCS: 96374; J1200; J2060; J2270; J2405; Q9967

== ENCOUNTER → 2018-11-18 | Outpatient (CLI) | payer OTHER | LOC: BMCIMAGING 13:07 | PROVIDERS: ATTEND Internal Medicine | DX: R05 Cough (principal) ==

== ENCOUNTER → 2019-01-06 | Outpatient (CLI) | payer OTHER | LOC: FIMAGING 07:45 | PROVIDERS: ATTEND Internal Medicine | DX: Z12.31 Encounter for screening mammogram for malignant neoplasm of breast (principal) ==